=== PATIENT | female | born 1965 | race Native Hawaiian/Other Pacific Islander ===

== ENCOUNTER 2024-02-27 09:15 | Emergency (ER) | payer OTHER, SELFPAY ==
[2024-02-27 09:19] VITALS: BP 149/82; PULSE 66; RESP 16; TEMP 36.5; O2SAT 95; BMI 42.4
--- NOTE | 2024-02-27 09:56 | ED_ITS ---
HPI - Fall General Chief Complaint: Fall/Minor Trauma Stated Complaint: fell Time Seen by Provider: 02/27/24 09:45 History of Present Illness HPI Narrative: This 5-year-old female comes in reporting a fall that occurred late last evening. She was at work and tripped over a step and fell onto her left side. She did not have loss of consciousness. She was able to get up and ambulate. She reports some pain in her right hand that is resolved but now has more discomfort in the muscles around her left shoulder. She states that this is left shoulder pain as worsened overnight. She does have normal range of motion of her left upper extremity but reports some discomfort when raising her hand fully straight up above her head. She did also bump her left cheek and has a small bruise there. She is not on any anticoagulants. She does not report head pain or back pain. She states that she is coming in just because this is a work related injury and once documentation and some treatment plan for her injury symptoms. Related Data Home Medications Medication Instructions Recorded Confirmed amilodine DAILY 02/27/24 losartan PO DAILY 02/27/24 Previous Rx's Medication Instructions Recorded cyclobenzaprine 10 mg tablet 10 mg PO TID #15 tabs 02/27/24 ketorolac 10 mg tablet 10 mg PO Q8H 5 days #15 tabs 02/27/24 Allergies Allergy/AdvReac Type Severity Reaction Status Date / Time dust Allergy Mild cough, Uncoded 02/27/24 09:37 stuffed up Review of Systems Status of ROS: Reports: 10 or more systems reviewed and unremarkable except as noted in History and below Narrative: Constitutional: No fevers, no weight gain or loss. Eyes: No discharge. No vision changes. HENT: No congestion, no sore throat, no ear pain. Cardiovascular: No chest pain, no palpitations. Respiratory: No shortness of breath, no wheezes, no cough. Gastrointestinal: No abdominal pain, no vomiting, no diarrhea. Genitourinary: No dysuria, no hematuria. Musculoskeletal: Normal range of motion. Left shoulder pain as described above. Skin: No rashes, no pruritis. Neurological: No dizziness, weakness, sensory change, speech change. Endo/Heme/Allergies: No bruising or bleeding. No polydipsia. Pysch: no suicidality, no anxiety, no insomnia. All other systems reviewed and are negative. Exam Narrative: Exam Narrative: Constitutional: Well-developed, well-nourished, no acute distress. HEENT: Small bruise on the left cheek. Neck: Normal range of motion. Nontender. Supple. Heart: Regular. No murmurs. Normal rate. Intact distal pulses. Lungs: Clear to auscultation. No chest discomfort. No wheezes, rhonchi, or rales. Abdomen: Normal bowel sounds. Nontender. No rebound tenderness. Genitalia: Deferred. Back: No midline tenderness. Normal range of motion. Extremities: Normal range of motion. Painful range of motion when raising her left arm up above her head. There is no sign of deformity or decreased range of motion. Skin: Intact. No rash. Warm. No erythema or pallor. Neurologic: No altered sensation. No weakness. Alert and oriented. Psychiatric: No suicidality. No anxiety or depression. No insomnia. Nursing notes and vitals signs are reviewed. Const: Vital Signs, click to edit/add: Vital Signs - 24 hr 02/27/24 09:19 Temperature 97.7 F Pulse Rate [Pulse Oximeter] 66 Respiratory Rate 16 Blood Pressure [Ri ght Upper Arm] 149/82 H Pulse Oximetry 95 Oxygen Delivery Me thod Room Air Course Vital Signs Vital signs: Initial Vital Signs Temperature 97.7 F 02/27/24 09:19 Temperature Source Temporal Artery Scan 02/27/24 09:19 Pulse Rate 66 02/27/24 09:19 Respiratory Rate 16 02/27/24 09:19 Blood Pressure 149/82 H 02/27/24 09:19 Blood Pressure Mean 104 02/27/24 09:19 Blood Pressure Position Sitting 02/27/24 09:19 Pulse Oximetry 95 02/27/24 09:19 Oxygen Delivery Method Room Air 02/27/24 09:19 Vital Signs Temperature 97.7 F 02/27/24 09:19 Pulse Rate 66 02/27/24 09:19 Respiratory Rate 16 02/27/24 09:19 Blood Pressure 149/82 H 02/27/24 09:19 Pulse Oximetry 95 02/27/24 09:19 Oxygen Delivery Method Room Air 02/27/24 09:19 Temperature 97.7 F 02/27/24 09:19 Pulse Rate 66 02/27/24 09:19 Respiratory Rate 16 02/27/24 09:19 Blood Pressure 149/82 H 02/27/24 09:19 Pulse Oximetry 95 02/27/24 09:19 Oxygen Delivery Method Room Air 02/27/24 09:19 MDM - Fall MDM Narrative Medical decision making narrative: This patient comes in with a report of a work related injury that occurred last evening. Her primary symptom is some left shoulder pain on range of motion. 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 I did discuss lab and imaging options with the patient and these were declined in a pr ocess of shared decision making. I did provide a return to work note and prescriptions for Toradol and Flexeril. Discharge Plan Discharge Clinical Impression: Left shoulder pain Patient Disposition: Home, Self-Care Condition: Stable Additional Instructions: Take medication as needed and indicated. Increase activity as tolerated. Follow up with MD return if worsening. Prescriptions: New cyclobenzaprine 10 mg tablet 10 mg PO TID Qty: 15 0RF ketorolac 10 mg tablet 10 mg PO Q8H 5 Days Qty: 15 0RF No Action losartan PO DAILY amilodine DAILY Stand Alone Forms: [employer] Info Instructions
== END 2024-02-27 10:20 | disposition home or self-care (01) ==
LOC: ED 10:13
PROVIDERS: Emergency Provider Emergency Medicine Emergency Medical Services
DX: M25.512 Pain in left shoulder (principal); W10.9XXA Fall (on) (from) unspecified stairs and steps, initial encounter
CPT/HCPCS: 99283; 99284